=== PATIENT | male | born 1960 | race Caucasian/White ===

== ENCOUNTER 2017-06-07 13:20 | Day surgery (SDC) | payer SELFPAY ==
[~2017-06-07] VITALS: Ht 175.3 cm; Wt 74.7 kg
[~2017-06-07 13:20] MED LIST: AMOXICILLIN 50500 MG PO; BUSPAR10 MG; LEVOTHYROXINE PO; LITHIUM 60600 MG/CAP PO; NORCO 325 MG-51 TAB PO; PROTONIX 40MG T40 MG PO; SYNTHROID 0.0.025 MG PO; VALIUM 5MG T5 MG/TAB PO; XANAX .25M0.25 MG/TA PO; XANAX 0.5MG0.5 MG PO; ZOLOFT 25MG25 MG PO; ZOLOFT PO; ZYLOPRIM 100MG100 MG PO
[2017-06-07 14:03] VITALS: BP 138/101; PULSE 74; TEMP 97.7
[2017-06-07] MEDS ORDERED: KLONOPIN 0.5MG0.5 MG PO (14:15)
[2017-06-07] MEDS ORDERED: CARAFATE 1GM1 G PO (14:19)
[2017-06-07] MEDS ORDERED: PROTONIX 40MG T40 MG PO (14:25)
[2017-06-07 15:36] VITALS: BP 122/86; PULSE 71; TEMP 97.6
[2017-06-07 15:50] VITALS: BP 124/85; PULSE 58
[2017-06-07 16:07] VITALS: BP 121/89; PULSE 59
[2017-06-07 18:41] VITALS: BP 129/86; PULSE 70
== END 2017-06-07 17:12 | disposition home or self-care (01) ==
LOC: SDCO 13:20
DX: Z12.11 Encounter for screening for malignant neoplasm of colon (principal); K22.8 Other specified diseases of esophagus; K21.0 Gastro-esophageal reflux disease with esophagitis; K29.70 Gastritis, unspecified, without bleeding; K59.00 Constipation, unspecified; K58.9 Irritable bowel syndrome, unspecified; F41.9 Anxiety disorder, unspecified; F32.9 Major depressive disorder, single episode, unspecified; Z87.891 Personal history of nicotine dependence; Z80.0 Family history of malignant neoplasm of digestive organs
CPT/HCPCS: OP; J2250; J3010; J7030

== ENCOUNTER → 2018-01-19 | Outpatient (REF) ==
[~2018-01-19] MED LIST changes: +CARAFATE 1GM1 G PO; +KLONOPIN 0.5MG0.5 MG PO
== END ==
LOC: COL.LAB 14:10
DX: Z01.89 Encounter for other specified special examinations (principal)

== ENCOUNTER 2019-03-05 21:20 | Emergency (ER) | payer SELFPAY ==
[~2019-03-05] VITALS: Ht 175.3 cm; Wt 59.1 kg
[2019-03-05 21:31] VITALS: BP 138/58; PULSE 96; TEMP 97.6
== END 2019-03-06 01:00 | disposition left against medical advice (07) ==
LOC: COL.ER 21:20
DX: R56.9 Unspecified convulsions (principal); F41.9 Anxiety disorder, unspecified

== ENCOUNTER 2019-09-25 12:27 | Emergency (ER) | payer SELFPAY ==
[~2019-09-25] VITALS: Ht 175.3 cm; Wt 55.9 kg
[2019-09-25 12:36] VITALS: BP 119/78; TEMP 97.7
[2019-09-25] MEDS ORDERED: DESYREL 100MG100 MG PO (13:17)
[2019-09-25 13:47] LABS: COLLECTION METHOD CLEAN CATCH
[2019-09-25 13:52] LABS: MUCOUS Present /lpf; PH 6 (5-8); SQUAMOUS EPITHELIAL None Seen /hpf; URINE APPEARANCE Clear; URINE BACTERIA None Seen /hpf; URINE BILIRUBIN Negative (NEGATIVE); URINE BLOOD Negative (NEGATIVE); URINE COLOR Yellow; URINE GLUCOSE Negative (NEGATIVE); URINE KETONE Negative (NEGATIVE); URINE LEUKOCYTE ESTERASE Negative (NEGATIVE); URINE NITRATE Negative (NEGATIVE); URINE PROTEIN(semi-quant) Negative (NEGATIVE)
[2019-09-25 14:09] LABS: TRICYCLIC ANTIDEPRESS URINE NEGATIVE
[2019-09-25 14:45] LABS: BASO % 0.8 % (0.0-2.0); EOS # 0.1 (0.0-0.7); EOS % 3.3 % (0-4.0); GRAN # 1.3 (1.4-6.5); HEMATOCRIT 38.7 % (42.0-52.0); HEMOGLOBIN 12.7 g/dl (13.5-18.0); LYMPH # 0.8 (1.2-3.4); LYMPH % 33.5 % (20.0-51.0); MEAN CELL VOLUME 85 fl (80.0-100.0); MEAN CORPUSCULAR HEMOGLOBIN 28 pg (27.0-31.0); MEAN CORPUSCULAR HGB CONC 33 g/dl (33.0-37.0); MEAN PLATELET VOLUME 9.6 fl (7.4-10.4); MONO # 0.2 (0.1-0.6); PLATELET COUNT 84 K/mm3 (130-400); RED BLOOD COUNT 4.56 M/mm3 (4.20-5.60); REDCELL DISTRIBUTION WIDTH-CV 12.4 % (11.5-14.5)
[2019-09-25 15:06] LABS: ALANINE AMINOTRANSFERASE 31 U/L (21-72); ALBUMIN 3.6 gm/dL (3.5-5.0); ALKALINE PHOSPHATASE 104 U/L (50-136); ANION GAP 6 mmol/L (7-16); AST,SGOT 30 U/L (15-37); BILIRUBIN,TOTAL 0.4 mg/dL (0.0-1.0); BLOOD UREA NITROGEN 14 mg/dL (9-20); CALCIUM 9.1 mg/dL (8.4-10.2); CARBON DIOXIDE 27 mmol/L (22-30); CHLORIDE 107 mmol/L (98-107); CREATININE, serum 0.75 (0.66-1.25); GLUCOSE 112 mg/dL (74-106); POTASSIUM 4.1 mmol/L (3.4-5.0); SALICYLATE 1.1 mg/dL; SODIUM 140 mmol/L (137-145); TOTAL PROTEIN 6.2 gm/dL (6.4-8.2)
[2019-09-25 15:14] LABS: ACETAMINOPHEN < 10 ug/mL (10-30); ALCOHOL(ethanol),MEDICAL < 10 mg/dL
[2019-09-25 15:43] LABS: THYROID STIMULATING HORMONE < 0.015 uIU/mL (0.465-4.680)
[2019-09-25 19:15] VITALS: PULSE 100
== END 2019-09-25 19:15 | disposition home or self-care (01) ==
LOC: COL.ER 12:27
PROVIDERS: Emergency Medicine
DX: F30.9 Manic episode, unspecified (principal); E05.90 Thyrotoxicosis, unspecified without thyrotoxic crisis or storm

== ENCOUNTER 2021-02-19 21:28 | Emergency (ER) | payer SELFPAY ==
[~2021-02-19 21:28] MED LIST changes: +DESYREL 100MG100 MG PO
[2021-02-19 21:43] VITALS: TEMP 98
[2021-02-19 22:35] LABS: HEMATOCRIT 45.4 % (42.0-52.0); HEMOGLOBIN 15.6 g/dl (13.5-18.0); MEAN CELL VOLUME 79 fl (80.0-100.0); MEAN CORPUSCULAR HEMOGLOBIN 27 pg (27.0-31.0); MEAN CORPUSCULAR HGB CONC 34 g/dl (33.0-37.0); MEAN PLATELET VOLUME 9.4 fl (7.4-10.4); PLATELET COUNT 213 K/mm3 (130-400); RED BLOOD COUNT 5.76 M/mm3 (4.20-5.60); REDCELL DISTRIBUTION WIDTH-CV 12.7 % (11.5-14.5)
[2021-02-19 22:47] LABS: ACETAMINOPHEN < 10 ug/mL (10-30); ALANINE AMINOTRANSFERASE 13 U/L (4-49); ALCOHOL(ethanol),MEDICAL < 10 mg/dL; ALKALINE PHOSPHATASE 74 U/L (50-136); ANION GAP 11 mmol/L (7-16); AST,SGOT 17 U/L (15-37); BILIRUBIN,TOTAL 0.6 mg/dL (0.0-1.0); BLOOD UREA NITROGEN 12 mg/dL (9-20); CALCIUM 9.2 mg/dL (8.4-10.2); CARBON DIOXIDE 20 mmol/L (22-30); CHLORIDE 105 mmol/L (98-107); CREATININE, serum 0.92 (0.66-1.25); GLUCOSE 132 mg/dL (74-106); POTASSIUM 3.7 mmol/L (3.4-5.0); SALICYLATE < 1.0 mg/dL; SODIUM 137 mmol/L (137-145); TOTAL PROTEIN 7.6 gm/dL (6.4-8.2)
[2021-02-19 22:51] LABS: EOSINOPHIL 1 % (0-4); LYMPHOCYTE 30 % (20.0-51.0); NEUTROPHILS 64 % (42.0-75.2); PLATELET ESTIMATE NORMAL (NORMAL)
[2021-02-19 22:58] LABS: COLLECTION METHOD CLEAN CATCH
[2021-02-19 23:06] LABS: MUCOUS Present /lpf; PH 6 (5-8); SQUAMOUS EPITHELIAL 0-2 /hpf; URINE APPEARANCE Cloudy; URINE BACTERIA Rare /hpf; URINE BILIRUBIN Negative (NEGATIVE); URINE BLOOD 2+ (NEGATIVE); URINE COLOR Amber; URINE GLUCOSE Negative (NEGATIVE); URINE KETONE Trace (NEGATIVE); URINE LEUKOCYTE ESTERASE 3+ (NEGATIVE); URINE NITRATE Positive (NEGATIVE); URINE PROTEIN(semi-quant) 1+ (NEGATIVE); URINE UROBILINOGEN >=4.0 mg/dL (NEGATIVE)
[2021-02-19 23:11] LABS: TRICYCLIC ANTIDEPRESS URINE NEGATIVE
[2021-02-20] MEDS ORDERED: OMNICEF 300MG300 MG PO (00:13)
[2021-02-20] MEDS ORDERED: KLONOPIN 0.5MG0.5 MG PO (03:14)
[2021-02-20 03:52] VITALS: BP 119/78; PULSE 113
== END 2021-02-20 03:52 | disposition home or self-care (01) ==
LOC: COL.ER 21:28
PROVIDERS: Nurse Practitioner Primary Care
DX: F41.9 Anxiety disorder, unspecified (principal); N39.0 Urinary tract infection, site not specified; R45.851 Suicidal ideations; F31.9 Bipolar disorder, unspecified; Z87.891 Personal history of nicotine dependence

== ENCOUNTER 2021-12-11 17:20 | Emergency (ER) | payer SELFPAY ==
[~2021-12-11] VITALS: Ht 175.3 cm; Wt 63.6 kg
[~2021-12-11 17:20] MED LIST changes: +OMNICEF 300MG300 MG PO
[2021-12-11 19:24] VITALS: BP 137/71; PULSE 81; TEMP 98.2
== END 2021-12-11 19:26 | disposition home or self-care (01) ==
LOC: COL.ER 17:20
DX: S80.01XA Contusion of right knee, initial encounter (principal); F32.A Depression, unspecified; F43.10 Post-traumatic stress disorder, unspecified; Z79.899 Other long term (current) drug therapy; W10.9XXA Fall (on) (from) unspecified stairs and steps, initial encounter

== ENCOUNTER 2022-07-04 20:27 | Inpatient (IN) | payer SELFPAY ==
[~2022-07-04] VITALS: Ht 172.7 cm; Wt 51.7 kg
[~2022-07-04 20:27] MED LIST changes: +ZOLOFT; +ZOLOFT 100MG100 MG PO
[2022-07-04 21:27] LABS: BASO % 0.6 % (0.0-2.0); EOS % 0.3 % (0.0-4.0); GRAN # 3.3 K/mm3 (1.4-6.5); GRAN % 53.2 % (42.2-75.2); HEMATOCRIT 46.4 % (42.0-52.0); HEMOGLOBIN 14.7 g/dl (13.5-18.0); LYMPH # 2.2 K/mm3 (1.2-3.4); LYMPH % 34.5 % (20.0-51.0); MEAN CELL VOLUME 83 fl (80.0-100.0); MEAN CORPUSCULAR HEMOGLOBIN 26 pg (27-31); MEAN CORPUSCULAR HGB CONC 32 g/dl (33.0-37.0); MONO # 0.7 K/mm3 (0.1-0.6); MONO % 10.9 % (1.7-9.3); PLATELET COUNT 121 K/mm3 (130-400); RED BLOOD COUNT 5.62 M/mm3 (4.20-5.60); REDCELL DISTRIBUTION WIDTH-CV 13.8 % (11.5-14.5)
[2022-07-04 21:48] LABS: ALBUMIN 3.1 gm/dL (3.4-4.8); BILIRUBIN,TOTAL 0.9 mg/dL (0.2-1.2); C-REACTIVE PROTEIN 0.38 mg/dL (0.00-0.50); CALCIUM 9.2 mg/dL (8.4-10.2); CREATININE, serum 0.93 mg/dL (0.72-1.25); POTASSIUM 3.3 mmol/L (3.5-4.5); TOTAL PROTEIN 5.5 gm/dL (6.2-8.1)
[2022-07-05 00:39] VITALS: BP 170/80; PULSE 111; TEMP 97.9
--- NOTE | 2022-07-05 01:15 | NUR ---
PT ARRIVED FROM ED. THE PATIENT IS LAYING IN BED COMFORTABLY. HAS COMPLAINT OF PAIN IN THE ABD AT A 5/10. THE PATIENT ALSO STATES THAT HE WOULD BE INTERESTED IN SOME JELLO FOR FOOD. WILL GET THE PATIENT SOME JELLO AND MONITOR NAUSEA WHICH HAS BEEN A COMPLAINT FOR GREATER THAN 3 WEEKS. IV FLUIDS ORDERED.
[2022-07-05 04:46] VITALS: BP 138/78; PULSE 110; TEMP 98.7
--- NOTE | 2022-07-05 05:55 | NUR ---
DURING THE NIGHT, THE PATIENT STATES THAT HE DOES NOT FEEL THE URGE TO URINATE. BLADDER SCAN WAS COMPLETED AND THERE WAS APPROXIMATELY 258ML, NO INTERVENTION NEEDED AT THIS TIME. HOWEVER, THE PATIENT HAS YET TO URINATE SINCE HIS ARRIVAL TO THE HOSPITAL TO INCLUDE HIS STAY IN THE ER. SKYLER WOODARD IS AWARE. NO OTHER CONCERNS AT THIS TIME.
[2022-07-05 06:05] LABS: BASO % 0.6 % (0.0-2.0); EOS % 0.6 % (0.0-4.0); GRAN # 2.3 K/mm3 (1.4-6.5); HEMATOCRIT 38.5 % (42.0-52.0); LYMPH % 41.3 % (20.0-51.0); MEAN CELL VOLUME 81 fl (80.0-100.0); MEAN CORPUSCULAR HEMOGLOBIN 27 pg (27-31); MEAN CORPUSCULAR HGB CONC 33 g/dl (33.0-37.0); MEAN PLATELET VOLUME 10.2 fl (7.4-10.4); MONO # 0.4 K/mm3 (0.1-0.6); MONO % 9.1 % (1.7-9.3); PLATELET COUNT 90 K/mm3 (130-400); RED BLOOD COUNT 4.75 M/mm3 (4.20-5.60); REDCELL DISTRIBUTION WIDTH-CV 13.5 % (11.5-14.5)
[2022-07-05 06:22] LABS: CALCIUM 8.9 mg/dL (8.4-10.2); CREATININE, serum 0.72 mg/dL (0.72-1.25); MAGNESIUM 1.7 mg/dL (1.6-2.6); POTASSIUM 3.6 mmol/L (3.5-4.5)
[2022-07-05 06:27] LABS: HEMOGLOBIN 12.6 g/dl (13.5-18.0)
[2022-07-05 08:00] VITALS: BP 147/77; PULSE 110; TEMP 97.9
[2022-07-05 11:24] VITALS: BP 125/62; PULSE 120; TEMP 98.1
[2022-07-05] MEDS ORDERED: KLONOPIN 0.5MG0.5 MG PO (12:17)
[2022-07-05 12:37] LABS: CREATININE, serum 0.73 mg/dL (0.72-1.25); POTASSIUM 3.5 mmol/L (3.5-4.5)
--- NOTE | 2022-07-05 15:01 | NUR ---
Mysql Database Developer spoke with Blow Molding Machine Operator, Taya Zacarias who advised patient's sister, Nicolette Arnold (Jodey) (ph#[phone], address: [address] [place] [address]) contacted her and advised she would arrive to [place] tomorrow and would like to meet with SW tomorrow to discuss Advance Directives. SW met with patient to complete initial intake. Patient lives alone in [place] and does not have a current primary care physician, although reported he was seen at the [facility] a couple months ago. Patient unsure if he wants SW to schedule him another follow up. Patient follows with Psychiatrist, Dr. Marie however reports he has not seen him in person in quite some time. Patient advised Dr. Marie prescribes his medications. SW spoke with patient about DPOA-HC and patient stated he wasn't entirely sure what it meant and would just "go along with whatever". SW explained the definition of DPOA-HC with patient and he would like to discuss this futher once his sister arrives. Patient confirms he is self pay, which will limit available resources. SW will continue to follow for discharge planning needs.
[2022-07-05 16:30] VITALS: BP 144/80; PULSE 107; TEMP 98.4
[2022-07-05 16:39] LABS: CALCIUM 9.1 mg/dL (8.4-10.2); CREATININE, serum 0.7 mg/dL (0.72-1.25); POTASSIUM 3.2 mmol/L (3.5-4.5)
--- NOTE | 2022-07-05 18:00 | NUR ---
PATIENT ATE 90% OF MASHED POTATOES AND CHICKEN BROTH, CURRENTLY DRINKING HIS ENSURE. PATIENT APPETITE SLOWLY IMPROVING.
[2022-07-05 20:17] VITALS: BP 123/70; PULSE 109; TEMP 98.6
[2022-07-06 04:53] VITALS: BP 139/75; PULSE 108; TEMP 98.2
[2022-07-06 06:27] LABS: BASO % 0.6 % (0.0-2.0); EOS # 0.1 K/mm3 (0.0-0.7); EOS % 1.2 % (0.0-4.0); GRAN # 3.7 K/mm3 (1.4-6.5); GRAN % 70.8 % (42.2-75.2); HEMATOCRIT 40.4 % (42.0-52.0); HEMOGLOBIN 13.1 g/dl (13.5-18.0); MEAN CELL VOLUME 82 fl (80.0-100.0); MEAN CORPUSCULAR HEMOGLOBIN 26 pg (27-31); MEAN CORPUSCULAR HGB CONC 32 g/dl (33.0-37.0); MEAN PLATELET VOLUME 11.3 fl (7.4-10.4); MONO # 0.4 K/mm3 (0.1-0.6); PLATELET COUNT 86 K/mm3 (130-400); RED BLOOD COUNT 4.96 M/mm3 (4.20-5.60); REDCELL DISTRIBUTION WIDTH-CV 13.3 % (11.5-14.5)
[2022-07-06 06:41] LABS: CALCIUM 8.9 mg/dL (8.4-10.2); CREATININE, serum 0.64 mg/dL (0.72-1.25); POTASSIUM 3.7 mmol/L (3.5-4.5)
[2022-07-06 07:48] VITALS: BP 147/78; PULSE 112; TEMP 98.7
[2022-07-06 11:15] VITALS: BP 132/83; PULSE 107; TEMP 98
--- NOTE | 2022-07-06 13:55 | NUR ---
Deanna: No denominational preference Situation: gifts officer stopped by room on rounds Background: Pt was resting and content Assessment: Divorce Attorney prayed with Pt, Pt appreciated the visit Recommendation: gifts officer will follow up as needed
--- NOTE | 2022-07-06 14:35 | NUR ---
Follow-up visit; Patient thanked Cash Applications Manager for looking in on him again today and offering Spiritual Care, talking about the morning prayers Cash Applications Manager reads and prays every morning over the intercom and how they apply to him. Cash Applications Manager offered God's blessings and will continue to follow up with
[2022-07-06 15:19] VITALS: BP 139/77; PULSE 109; TEMP 98.8
--- NOTE | 2022-07-06 15:42 | NUR ---
Ordnance Technician met with patient's sister, Bob and her spouse, Alec to discuss patient's discharge needs. Bob would like to be connected with [employer] Financial Counselor to discuss if patient would qualify for Medicaid. Bob is also interested in obtaining a [facility] Resource Guide. MARKOS discussed Advance Directives with Bob and answered questions about DPOA-HC. Patient is not , has no children, and their parents are . Patient's only living siblings are Bob and their brother, Laron who according to Bob wants nothing to do with patient. MARKOS followed up with patient who stated to MARKOS he wanted to complete DPOA-HC and designate his sister, Bob as primary agent and his brother in law, Alec as alternate agent. MARKOS assisted him in completing the form and MARKOS and C[employer]pillar Operator, Neel provided witness signature. MARKOS placed copy in chart then provided original and copies to patient. MARKOS also provided patient with [facility] Resource Guide. MARKOS notified Bob that DPOA-HC was completed. MARKOS contacted Hina Financial Counselor and requested she assist patient with Medicaid if he qualifies.
[2022-07-06 17:22] LABS: COLLECTION METHOD CLEAN CATCH
[2022-07-06 17:53] LABS: MUCOUS Present (NOT PRESENT); SQUAMOUS EPITHELIAL None Seen /hpf (0-10); URINE BACTERIA Rare /hpf (NONE SEEN); URINE RBC 0-2 /hpf (0-2)
[2022-07-06 18:07] LABS: PH 6.5 (5.0-8.5); URINE APPEARANCE Clear (CLEAR/HAZY); URINE BLOOD TRACE-INTACT (NEGATIVE); URINE COLOR Yellow (YELLOW); URINE GLUCOSE Negative (NEGATIVE); URINE KETONE Negative (NEGATIVE); URINE NITRATE Positive (NEGATIVE); URINE PROTEIN(semi-quant) Negative (NEGATIVE); URINE UROBILINOGEN 0.2 E.U/dL (0.2-1.0)
--- NOTE | 2022-07-06 19:20 | NUR ---
PATIENT SITTING IN BED WATCHING TELEVISION AT THIS TIME. PATIENT ENOURAGED TO TO CONTINUE DRINKING BOWEL PREP AT THIS TIME. PATIENT DENIES PAIN, NEEDS OR CONCERNS AT THIS TIME. CALL LIGHT IS WITHIN REACH OF PATIENT AND PATIENT IS ENCOURAGED TO USE WITH ANY NEEDS OR CONCERNS. PATIENT STATES UNDERSTANDING.
[2022-07-06 20:54] VITALS: BP 157/86; PULSE 99; TEMP 97.8
[2022-07-07] VITALS (11 sets, daily range): BP systolic 130–158; BP diastolic 63–99; PULSE 90–112; TEMP 97.6–98.7
--- NOTE | 2022-07-07 05:31 | NUR ---
PATIENT HAS HAD AN EVENTFUL NIGHT WITH BOWEL PREP. PATIENT WAS ABLE TO CONSUME ALL BOWEL PREP. PATIENT DOES STATE HE IS ALL CLEANED OUT NOW AND HIS LAST BOWEL MOVEMENT WAS CLEAR. PATIENT DID NOT CALL FOR ASSITANCE WITH LAST BOWEL MOVEMENT SO UNABLE TO VERIFY IF IT WAS CLEAR. PATIENT STATED THAT HE HAD A LOT OF BLOOD WITH BOWEL MOVEMENTS. THIS NURSE DID NOT NOTE ANY RED OR BLACK IN STOOLS WHEN PATIENT CALLED FOR ASSISTANCE. PATIENT DENIES PAIN, NEEDS AND OR CONCERNS AT THIS TIME. CALL LIGHT REMAINS IN REACH AND PATIENT ENCOUARGED TO CALL WITH ANY NEEDS OR CONERNS.
[2022-07-07 06:52] LABS: BASO % 0.4 % (0.0-2.0); EOS # 0.1 K/mm3 (0.0-0.7); EOS % 1.1 % (0.0-4.0); GRAN # 3.1 K/mm3 (1.4-6.5); GRAN % 70.7 % (42.2-75.2); HEMATOCRIT 38.1 % (42.0-52.0); HEMOGLOBIN 12.4 g/dl (13.5-18.0); LYMPH # 0.8 K/mm3 (1.2-3.4); LYMPH % 18.2 % (20.0-51.0); MEAN CELL VOLUME 81 fl (80.0-100.0); MEAN CORPUSCULAR HEMOGLOBIN 26 pg (27-31); MEAN CORPUSCULAR HGB CONC 33 g/dl (33.0-37.0); MEAN PLATELET VOLUME 11.6 fl (7.4-10.4); MONO # 0.4 K/mm3 (0.1-0.6); MONO % 9.2 % (1.7-9.3); PLATELET COUNT 70 K/mm3 (130-400); REDCELL DISTRIBUTION WIDTH-CV 13.2 % (11.5-14.5)
[2022-07-07 07:01] LABS: CREATININE, serum 0.63 mg/dL (0.72-1.25); POTASSIUM 3.8 mmol/L (3.5-4.5)
--- NOTE | 2022-07-07 08:46 | NUR ---
TELE CALLED THAT PATIENT IN A FLUTTER. LJ GODINEZ INFORMED FACE TO FACE. SHE STATED SHE JUST LEFT THE ROOM AND LISTENED TO HIS HEART SOUNDS. I WENT IN TO RE- EVAL AND HEARD NORMAL HEART SOUNDS. EKG ORDERED.
--- NOTE | 2022-07-07 09:05 | NUR ---
EARLIER EKG SHOWING NSR
--- NOTE | 2022-07-07 12:12 | NUR ---
Follow-up visit; Patient thanked for continuing to look in on him. He spoke of his visit with his sister yesterday and today he has more tests. prays he will learn what is going on with his health so he can be treated.
--- NOTE | 2022-07-07 18:57 | NUR ---
PATIENT LAYING IN BED AT THIS TIME. PATIENT DENIES PAIN, NEEDS OR CONCERNS. CALL LIGHT REMAINS WITHIN REACH AND PATIENT IS ENCOURAGED TO USE WITH ANY NEEDS OR CONCERNS. PATIENT REMINDED STOOL SAMPLE IS STILL NEEDED AND TO CALL NURSE WHEN PATIENT IS READY. PATIENT STATES UNDERSTANDING.
[2022-07-08] VITALS (7 sets, daily range): BP systolic 124–144; BP diastolic 55–77; PULSE 96–112; TEMP 97.8–98.6
--- NOTE | 2022-07-08 02:11 | NUR ---
TELEMETRY CALLED TO INFORM PATIENT WAS NOT REGISTERING ON TELE. WHEN THIS NURSE WENT TO PATIENT ROOM, WATER AND BLOOD WERE NOTED ON FLOOR. PATIENT WAS FOUND IN RESTROOM ON COMMODE AND ASKED THIS NURSE TO STEP OUT FOR PRIVACY. THIS NURSE VERIFIED PRESSURE WAS BEING PLACED ON FOREHEAD LACERATION. CHARGE NURSE BRIAN DE LEON RN NOTIFIED OF FALL. JOSE CRUZ JAMES NP NOTIFIED OF FALL. CHILD AND ADOLESCENT PSYCHIATRIST, MACY ELKINS NOTIED OF FALL. ORDERS GIVEN FOR STAT HEAD & SPINE CT. PRESSURE APPLIED TO FOREHEAD UNTIL STOPPED AND STERI-STRIPS APPLIED. ICE PACK APPLIED TO FOREHEAD. NEURO CHECK PERFORMED AT THIS TIME. PATIENT WITHIN NORMAL LIMITS WITH NO DEFICIANCY.
[2022-07-08 06:37] LABS: BASO % 0.8 % (0.0-2.0); EOS # 0.1 K/mm3 (0.0-0.7); GRAN # 1.6 K/mm3 (1.4-6.5); HEMATOCRIT 38.2 % (42.0-52.0); HEMOGLOBIN 12.2 g/dl (13.5-18.0); LYMPH # 0.7 K/mm3 (1.2-3.4); LYMPH % 25.9 % (20.0-51.0); MEAN CELL VOLUME 83 fl (80.0-100.0); MEAN CORPUSCULAR HEMOGLOBIN 26 pg (27-31); MEAN CORPUSCULAR HGB CONC 32 g/dl (33.0-37.0); MEAN PLATELET VOLUME 11.6 fl (7.4-10.4); MONO # 0.3 K/mm3 (0.1-0.6); MONO % 9.9 % (1.7-9.3); PLATELET COUNT 64 K/mm3 (130-400); RED BLOOD COUNT 4.63 M/mm3 (4.20-5.60); REDCELL DISTRIBUTION WIDTH-CV 13.2 % (11.5-14.5)
[2022-07-08 06:47] LABS: CALCIUM 8.9 mg/dL (8.4-10.2); CREATININE, serum 0.66 mg/dL (0.72-1.25); POTASSIUM 3.6 mmol/L (3.5-4.5)
--- NOTE | 2022-07-08 13:22 | NUR ---
Computational Geneticist attended clinical rounds with the team and patient is nearing discharge. MARKOS met with patient's sister, Bob and provided this update. MARKOS requested Hospitalist reach out to Bob with an update. Bob asked SW if SW thought it was a good idea for her to get legal DPOA and MARKOS advised it may be beneficial to patient, but as long as patient is capable of making his own decisions, it will be up to him. MARKOS advised discharge plan will be for home as patient is self pay. Bob has met with Hina, Financial Counselor. MARKOS spoke with Bob about local resources such as Meals on Wheels. Bob inquired about a notary. Both hospital notaries, Poppy and Shadia are not available today.
--- NOTE | 2022-07-08 18:24 | NUR ---
Patient has been eating well and taking all his meds. He refused to bath along the day. States he problable will do later at night. He asked twice for his anxiety medication. Eating well, and transfering himself with no problem. Report will be given to night RN.
[2022-07-09 00:17] VITALS: BP 132/75; PULSE 90; TEMP 97.7
[2022-07-09 03:51] VITALS: BP 129/75; PULSE 92; TEMP 97.6
--- NOTE | 2022-07-09 05:37 | NUR ---
SHIFT SUMMARY: PATIENT RESTED QUIETLY THIS SHIFT. PATIENT UP TO HAVE BOWEL MOVEMENT X1. PATIENT REQUESTED PRN TRAZADONE AT HS. PATIENT RECEIVED SCHEDULED ROCEPHIN WITH NO DIFFICULTIES. PATIENT HAD NO COMPLAINTS OF PHYSICAL PAIN. PATIENT ATE ICE CREAM AT HS AND TOLERATED.
[2022-07-09 07:08] LABS: BASO % 0.4 % (0.0-2.0); EOS # 0.1 K/mm3 (0.0-0.7); EOS % 4.2 % (0.0-4.0); GRAN # 1.3 K/mm3 (1.4-6.5); GRAN % 54.3 % (42.2-75.2); HEMOGLOBIN 12.5 g/dl (13.5-18.0); LYMPH # 0.7 K/mm3 (1.2-3.4); LYMPH % 29.4 % (20.0-51.0); MEAN CELL VOLUME 81 fl (80.0-100.0); MEAN CORPUSCULAR HEMOGLOBIN 27 pg (27-31); MEAN CORPUSCULAR HGB CONC 33 g/dl (33.0-37.0); MEAN PLATELET VOLUME 11.5 fl (7.4-10.4); MONO # 0.3 K/mm3 (0.1-0.6); MONO % 11.3 % (1.7-9.3); PLATELET COUNT 72 K/mm3 (130-400); RED BLOOD COUNT 4.71 M/mm3 (4.20-5.60); REDCELL DISTRIBUTION WIDTH-CV 13.1 % (11.5-14.5)
[2022-07-09 07:17] LABS: CALCIUM 8.8 mg/dL (8.4-10.2); CREATININE, serum 0.65 mg/dL (0.72-1.25); POTASSIUM 3.5 mmol/L (3.5-4.5)
[2022-07-09 08:03] VITALS: BP 120/60; PULSE 83; TEMP 97.6
[2022-07-09] MEDS ORDERED: CIPRO 250MG TA250 MG PO (10:22)
[2022-07-09] MEDS ORDERED: LAMICTAL 25MG T25 MG PO ×2 (10:24→10:26)
[2022-07-09] MEDS ORDERED: DESYREL 100MG100 MG PO (10:26)
[2022-07-09] MEDS ORDERED: ANUSOL-HC SUPPO25 MG RC (10:27)
[2022-07-09] MEDS ORDERED: PROTONIX 40MG T40 MG PO (10:27)
[2022-07-09] MEDS ORDERED: COMPLETE MULTI1 TAB PO (10:28)
[2022-07-09 11:53] VITALS: BP 129/64; PULSE 102; TEMP 97.7
--- NOTE | 2022-07-09 15:30 | NUR ---
PAIENT LEFT IN STABLE CONDITION. WHEELED DOWN STIARS. LEFT WTH SISTER AND BROTHER IN LAW. IV WAS DISCONTINUED, TELE REMOVED.
== END 2022-07-09 15:30 | disposition home or self-care (01) | DRG 377 ==
LOC: COL.ER 20:27 → MEDICAL 23:08
PROVIDERS: Family Medicine; Hospitalist; Internal Medicine Gastroenterology; Physician Assistant; Student in an Organized Health Care Education/Training Program; ADMIT Internal Medicine
PROC: 0D968ZX Drainage of Stomach, Via Natural or Artificial Opening Endoscopic, Diagnostic (ICD-10-PCS; 2022-07-07)
PROC: 0DB88ZX Excision of Small Intestine, Via Natural or Artificial Opening Endoscopic, Diagnostic (ICD-10-PCS; 2022-07-07)
PROC: 0DBN8ZX Excision of Sigmoid Colon, Via Natural or Artificial Opening Endoscopic, Diagnostic (ICD-10-PCS; principal; 2022-07-07 12:30)
PROC: 0DB98ZX Excision of Duodenum, Via Natural or Artificial Opening Endoscopic, Diagnostic (ICD-10-PCS; 2022-07-07 12:30)
DX: K29.61 Other gastritis with bleeding (principal); E43 Unspecified severe protein-calorie malnutrition; E87.1 Hypo-osmolality and hyponatremia; N39.0 Urinary tract infection, site not specified; Z68.1 Body mass index [BMI] 19.9 or less, adult; F31.30 Bipolar disorder, current episode depressed, mild or moderate severity, unspecified; E87.0 Hyperosmolality and hypernatremia; Z66 Do not resuscitate; F42.9 Obsessive-compulsive disorder, unspecified; F10.10 Alcohol abuse, uncomplicated; E86.0 Dehydration; E87.6 Hypokalemia; D69.6 Thrombocytopenia, unspecified; K64.4 Residual hemorrhoidal skin tags; K64.0 First degree hemorrhoids; D12.5 Benign neoplasm of sigmoid colon; K21.9 Gastro-esophageal reflux disease without esophagitis; K86.89 Other specified diseases of pancreas; B96.1 Klebsiella pneumoniae [K. pneumoniae] as the cause of diseases classified elsewhere; K74.60 Unspecified cirrhosis of liver; M62.81 Muscle weakness (generalized); F41.1 Generalized anxiety disorder; F41.0 Panic disorder [episodic paroxysmal anxiety]; E86.9 Volume depletion, unspecified; W18.39XA Other fall on same level, initial encounter; Y92.238 Other place in hospital as the place of occurrence of the external cause; S01.81XA Laceration without foreign body of other part of head, initial encounter; Z87.19 Personal history of other diseases of the digestive system; Y93.89 Activity, other specified; Z87.891 Personal history of nicotine dependence
CPT/HCPCS: J0696; J2270; J2405; J2704; J2765; J3010; J3475; J3480; J7030; J7070; J7120; Q9967